=== PATIENT | male | born 1995 | race Caucasian/White ===

== ENCOUNTER 2020-05-23 15:02 | Outpatient (CLI) | payer BC, SELFPAY ==
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
== END 2020-05-23 15:03 | disposition home or self-care (01) ==
PROVIDERS: PCP Family Medicine; Visit Provider Physician Assistant
DX: M25.531 Pain in right wrist (principal); M25.532 Pain in left wrist; S62.025A Nondisplaced fracture of middle third of navicular [scaphoid] bone of left wrist, initial encounter for closed fracture
CPT/HCPCS: 73110

== ENCOUNTER → 2021-12-16 02:10 | Outpatient (CLI) | payer BC, SELFPAY ==
[2021-12-16 17:21] LABS: SARS-CoV-2 RNA PCR Positive
== END ==
PROVIDERS: PCP Family Medicine; Visit Provider Nurse Practitioner Family
DX: U07.1 COVID-19 (principal); R05.9 Cough, unspecified
CPT/HCPCS: C9803; U0003; U0005

== ENCOUNTER → 2022-01-14 16:13 | Outpatient (CLI) | payer BC, SELFPAY ==
--- NOTE | ~2022-01-14 | XR_ITS ---
EXAMINATION: XR wrist LT w scaphoid DATE: 01/14/2022 16:29 INDICATION: Left wrist pain TECHNIQUE: Posteroanterior, ulnar deviation, scaphoid, oblique, and lateral views of the left wrist w ere obtained. COMPARISON: none FINDINGS: Interval internal fixation of the prior scaphoid waist fracture with a cannulated compression screw. The fracture has healed in essentially anatomic alignment. No other fractures identified. Slight nonu niform joint space narrowing at the triscaphe joint consistent with mild osteoarthritis. Remaining elpidio int spaces are normal. Soft tissues are unremarkable. IMPRESSION: 1. Near-anatomic alignment of a now healed internally fixed scaphoid waist fracture. 2. 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 Reviewed, dictated and finalized at location A. LINE OPERATOR IMPRESSION: 1. Near-anatomic alignment of a now healed internally fixed scaphoid waist frac ture. 2. 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
== END ==
PROVIDERS: PCP Family Medicine; Visit Provider Family Medicine
DX: M25.532 Pain in left wrist (principal); M19.032 Primary osteoarthritis, left wrist; Z87.81 Personal history of (healed) traumatic fracture
CPT/HCPCS: 73110

== ENCOUNTER 2022-03-17 21:19 | Emergency (ER) | payer BC, SELFPAY ==
--- NOTE | ~2022-03-17 | XR_ITS ---
EXAM: XR hand LT 2V HISTORY: laceration r/o retained fb COMPARISON: 01/14/2022 FINDINGS: Normal mineralization. No fracture or dislocation. No lytic or blastic lesion. Joint space s maintained. No erosion or periosteal change. Soft tissues within normal limits. Bandage material ov erlies the palm. Hardware fixation of the scaphoid, uncomplicated. IMPRESSION: No unexpected radiopaque foreign body. Reviewed, dictated and finalized at location K.
[2022-03-17 21:29] VITALS: BP 149/79; PULSE 85; RESP 16; TEMP 36.7; O2SAT 97
--- NOTE | 2022-03-17 21:59 | ED.WOUNDLAC ---
HPI - Wound/Laceration General Chief Complaint: Wound/Laceration Stated Complaint: left hand laceration Time Seen by Provider: 03/17/22 21:39 Source: patient History of Present Illness HPI narrative: Patient presents with a laceration to his left hand. Patient reports he was using a box lidder to open boxes when it slipped and struck himself in the left hand he noted pulsatile bleeding so came to ER for evaluation. Reports pain to the area achy, constant, worse with moving his hands, no radiation. Denies any focal numbness or weakness. Denies any lightheadedness or dizziness Related Data Allergies Allergy/AdvReac Type Severity Reaction Status Date / Time No Known Allergies Allergy Verified 03/17/22 21:32 Review of Systems Review of Systems: CONSTITUTIONAL: Denies fever, chills, or sweats. EYES: Denies visual changes, redness, or discharge. ENT: Denies rhinorrhea, congestion, sore throat, or otalgia. CARDIOVASCULAR: Denies chest pain, palpitations, or edema. RESPIRATORY: Denies cough or dyspnea. GASTROINTESTINAL: Denies abdominal pain, nausea, vomiting, or diarrhea. GENITOURINARY: Denies dysuria or hematuria. SKIN: Denies rash or itching. MUSCULOSKELETAL: Denies back pain, joint pain, or myalgia. NEUROLOGIC: Denies headache, numbness, dizziness, or weakness. PSYCHIATRIC: Denies anxiety or depression. All systems reviewed & are unremarkable except as noted in HPI and below PMFSH Past Medical History Medical History Bilateral wrist pain Status post fall Social History Social History Smoking status: Never smoker Alcohol intake: current Substance use: never Substance use type: does not use Gender identity (if verbalized by the patient): Male Sexual Orientation (if Verbalized by the Patient): Straight or Heterosexual Exam Narrative: GENERAL: Well-appearing, well-nourished, and in no acute distress. HEAD: Normocephalic, atraumatic. EYES: PERRLA and EOMI. ENT: Nares clear, no rhinorrhea or epistaxis. Mucous membranes moist. NECK: Supple. No masses. No JVD EXTREMITIES: Normal range of motion. 3 cm laceration with active bleeding on the thenar eminence of the left hand there is pulsatile bleeding. Range of motion of the left thumb remains intact sensation intact light touch cap refill less than 2 seconds SKIN: Warm, dry, no rash. NEURO: No focal deficits. Alert and oriented x3. PSYCH: Normal mood and affect. Course Reevaluation(s) Reevaluation #1: Patient is comfortable outpatient plan. Wound care instructions given. Date: 03/17/22 Time: 22:59 Vital Signs Vital signs: Vital Signs Temperature 36.7 C 03/17/22 21:29 Pulse Rate 85 03/17/22 21:29 Respiratory Rate 16 03/17/22 21:29 Blood Pressure 149/79 H 03/17/22 21:29 Pulse Oximetry 97 03/17/22 21:29 Temperature 36.7 C 03/17/22 21:29 Pulse Rate 85 03/17/22 21:29 Respiratory Rate 16 03/17/22 21:29 Blood Pressure 149/79 H 03/17/22 21:29 Pulse Oximetry 97 03/17/22 21:29 Procedures Laceration Laceration 1: Date: 03/17/22 Time: 22:49 Site: upper extremity Side (If applicable): left Size (cm): 3 Description: linear Depth: simple, single layer Local Anesthetic: lidocaine 1% and with epi Amount of anesthesia used (mL): 7 Pre-repair: wound explored and irrigated ====== Skin Level ====== Skin layer closed with: nylon Size (cm): 3-0 Number of sutures: 7 Technique: simple, interrupted and other (1 [id number] used at the most distal aspect of the wound where there was arterial bleeding appreciated no active bleeding after [id number] was placed. Another 6 sutures placed for simple interrupted's.) ====== Subcutaneous Layer ====== ====== Muscle Layer ====== ====== Tendon Layer ====== [facility]
[2022-03-17] MEDS: TETANUS,DIPHTHERIA,AC PERTUSSIS ADULT (0.5 ML) BOOSTRIX IM (22:58)
== END 2022-03-17 23:15 | disposition home or self-care (01) ==
LOC: ANHED 23:26
PROVIDERS: Emergency Provider Emergency Medicine; PCP Family Medicine
DX: S61.412A Laceration without foreign body of left hand, initial encounter (principal); Z23 Encounter for immunization; W27.0XXA Contact with workbench tool, initial encounter
CPT/HCPCS: 12002; 73120; 90471; 90715; 99283

== ENCOUNTER 2023-06-22 14:34 | Outpatient (CLI) | payer BC, SELFPAY ==
[2023-06-22 15:45] LABS: Strep Group A RT-PCR NOT DETECTED (Negative)
[2023-06-22 15:55] LABS: SARS-CoV-2 RNA PCR Negative (Negative)
== END 2023-06-22 14:35 | disposition home or self-care (01) ==
LOC: ANHLAB 14:37
PROVIDERS: PCP Family Medicine; Visit Provider Physician Assistant
DX: J02.9 Acute pharyngitis, unspecified (principal); Z20.822 Contact with and (suspected) exposure to COVID-19
CPT/HCPCS: 87635; 87651

== ENCOUNTER 2024-04-12 13:28 | Emergency (ER) | payer BC, SELFPAY ==
--- NOTE | ~2024-04-12 | XR_ITS ---
EXAMINATION: XR thoracic spine 3V DATE: 04/12/2024 14:07 INDICATION: Back pain. TECHNIQUE: 3 views of thoracic spine on 4 radiographs were obtained. COMPARISON: None. FINDINGS: There is 11 degrees levoscoliosis of upper thoracic spine. Vertebral body heights and inter vertebral disc heights are normal. IMPRESSION: 1. Upper thoracic levoscoliosis. Reviewed, dictated and finalized at location A.
--- NOTE | 2024-04-12 13:36 | ED.BACK ---
HPI - Back Pain/Injury General Chief Complaint: Back Pain/Injury Stated Complaint: Back pain Time Seen by Provider: 04/12/24 13:35 Source: patient Mode of arrival: ambulatory Limitations: no limitations History of Present Illness HPI Narrative: Patient is a 29-year-old male who presents with thoracic back pain under both shoulder blades. Patient states he got out of the shower today and bent down feeling sharp shooting pain. Patient reports pain is present with any twisting, bending or taking deep breaths. Patient has taken ibuprofen with no relief. Denies any numbness, tingling or weakness to extremities. Denies any loss of bowel or bladder. Related Data Allergies Allergy/AdvReac Type Severity Reaction Status Date / Time No Known Allergies Allergy Verified 04/12/24 13:40 Review of Systems Review of Systems: All systems reviewed & are unremarkable except as noted in HPI and below Constitutional: Constitutional: Denies body ache(s), Denies chills, Denies fatigue, Denies fever(s), Denies headache(s), Denies malaise and Denies weakness Eyes: Eyes: Denies blurry vision, Denies irritation and Denies loss of vision ENT: Denies otalgia, Denies headache(s), Denies nasal discharge, Denies sinus pain and Denies sore throat Cardiovascular: Cardiovascular: Denies chest pain, Denies irregular heart rhythm and Denies dyspnea Respiratory: Respiratory: Denies dyspnea Gastrointestinal: Gastrointestinal: Denies abdominal pain, Denies melena, Denies hematochezia, Denies diarrhea, Denies nausea and Denies vomiting Musculoskeletal: Musculoskeletal: Reports back pain, Denies myalgias and Denies arthralgias Integumentary/Breasts: Skin/Breast: Denies pruritus and Denies rash Neurologic: Denies headache(s), Denies loss of vision and Denies weakness Psychiatric: Psychiatric: Reports no additional psychiatric complaints Endocrine: Endocrine: Denies fatigue PMFSH Past Medical History Medical History Bilateral wrist pain Status post fall Social History Social History Smoking status: Never smoker Alcohol intake: current Substance use: never Substance use type: does not use Living arrangements: with family Occupation/Education: occupation Gender identity (if verbalized by the patient): Male Sexual Orientation (if Verbalized by the Patient): Straight or Heterosexual Comments At time of signature, agree with nursing past medical, surgical, social and family history. There is no relevant family history pertinent to the presenting complaint. Exam Const: General: cooperative, healthy appearing, comfortable, no acute distress and well nourished Nutritional Appearance: well nourished Orientation/consciousness: patient oriented x3 Limitations: no limitations HENMT: Head: normal to inspection, normocephalic and atraumatic Ears: hearing grossly normal bilaterally and external ears normal Face/Nose/Sinus: Normal external nose present, normal facial exam and face symmetric Face and sinus: normal facial exam and face symmetric Mouth: Yes lip normal Eyes: General: appearance normal, both eyes and all related structures Alignment and Position: alignment normal and position normal Periorbital: periorbital findings normal Eyelids: eyelids normal Pupils: Equal, round and reactive pupils present EOM: EOMs intact bilaterally Neck: Neck: normal visual inspection, full ROM and supple Chest: Chest palpation & inspection: normal inspection of the chest Resp: Effort & Inspection: normal respiratory effort and able to speak in complete sentences Auscultation: clear to auscultation bilaterally Cardio: Rate: regular rate Rhythm: regular rhythm Heart sounds: S1 normal heart sound present and S2 normal heart sound present GI: Inspection: normal to inspection Back/Spine/Pelvis: Thoracic/Lumbar Spine: thoracic and lumbar sp
[2024-04-12 13:48] VITALS: BP 149/90; PULSE 72; RESP 18; TEMP 36.9; O2SAT 100
== END 2024-04-12 14:25 | disposition home or self-care (01) ==
PROVIDERS: Emergency Provider Nurse Practitioner Family; PCP Family Medicine
DX: S29.012A Strain of muscle and tendon of back wall of thorax, initial encounter (principal); X58.XXXA Exposure to other specified factors, initial encounter
CPT/HCPCS: 72072; 99213; G0463

== ENCOUNTER 2025-08-20 11:59 | Emergency (ER) | payer BC, SELFPAY ==
[2025-08-20 12:09] VITALS: BP 128/80; PULSE 78; RESP 16; TEMP 36.8; O2SAT 99
--- NOTE | 2025-08-20 12:20 | ED.URI ---
HPI - URI/Sore Throat General Chief Complaint: Upper Respiratory Infection Stated Complaint: Sore Throat/Body aches/Cough Time Seen by Provider: 08/20/25 12:15 Source: patient and RN notes reviewed Mode of arrival: ambulatory Limitations: no limitations History of Present Illness HPI Narrative: 30-year-old male presents Express Care complaining of cough, congestion, nasal drainage, body aches, chills for approximately 9 days. Patient said he recently just returned from [place] from a honeymoon report he develops symptoms shortly after he returned. Patient denies any fevers, nausea vomiting, runny nose, earache, sore throat, chest pain, shortness of breath, difficulty breathing, diarrhea, or any other symptoms. Patient has been taking [id number] cold/flu medication some relief. Patient said today he woke up with worsening symptoms. Patient denies any significant past medical problems. Related Data Allergies Allergy/AdvReac Type Severity Reaction Status Date / Time No Known Allergies Allergy Verified 08/20/25 12:09 Review of Systems Review of Systems: CONSTITUTIONAL: Denies fever, chills, body aches, or sweats. EYES: Denies visual changes, redness, or discharge. ENT: Positive for congestion. Negative for rhinorrhea, sore throat, or otalgia. CARDIOVASCULAR: Denies chest pain, palpitations, or edema. RESPIRATORY: Positive for cough. Negative for dyspnea or wheezing. GASTROINTESTINAL: Denies abdominal pain, nausea, vomiting, or diarrhea. GENITOURINARY: Denies dysuria or hematuria. SKIN: Denies rash or itching. MUSCULOSKELETAL: Denies back pain, joint pain, or myalgia. NEUROLOGIC: Denies headache, numbness, or weakness. PSYCHIATRIC: Denies anxiety or depression. All other systems reviewed are negative, except as documented in HPI. [facility] Past Medical History Medical History Status post fall Bilateral wrist pain Social History Social History Smoking status: Never smoker Alcohol intake: current Substance use: never Substance use type: does not use Living arrangements: with family Occupation/Education: occupation Gender identity (if verbalized by the patient): Male Sexual Orientation (if Verbalized by the Patient): Straight or Heterosexual Comments At the time of my signature, I reviewed and agree with the nursing past medical, surgical, social, and family history. There is no relevant family history pertinent to the patient complaint. Exam Narrative: GENERAL: This is a well-nourished, well-developed adult, in no apparent distress. They are non ill-appearing, nontoxic appearing. HEAD: normocephalic, atraumatic. EYES: Sclera clear/white. Vision is grossly intact. Conjunctiva normal bilaterally. Extraocular movements intact. EARS: External ears normal, auditory canals clear and without drainage, TMs without erythema or perforation. Hearing grossly intact. NOSE: External nose normal with no obvious nasal discharge, nasal turbinates erythematous, no rhinorrhea. THROAT: Mucous membranes moist, posterior pharynx erythematous without exudate. Uvula is midline. Postnasal drip present. NECK: Neck supple, non-tender without lymphadenopathy, masses or thyromegaly. CARDIOVASCULAR: Regular rate and rhythm without murmurs, gallops, or rubs. RESPIRATORY: Clear to auscultation. Breath sounds equal bilaterally. No wheezes, rales, or rhonchi. SKIN: warm, Dry, intact with no suspicious lesions or rash, good texture and turgor. NEURO: awake, alert, and oriented to person, place and time. There were no obvious focal neurologic abnormalities. EXTREMITIES: No joint tenderness, effusion, or edema noted. BACK: Nontender without deformity. Course Course Emergency Course: Portions of this record may have been created with voice recognition software Level of Care: Express Care Visit Vital Signs Vital signs: Vital Signs Temperature 98.2 F 08/20/25 12:09 Pulse Rate 78 08/20/25 12:09 Respiratory Rate 16 08/20/25 12:09 Blood Pressure 128/80 08/20/25 12:09 Pulse Oximetry 99 08/20/25 12:09 Temperature 98.2 F 08/20/25 12:09 Pulse Rate 78 08/20/25 12:09 Respiratory Rate 16 08/20/25 12:09 Blood Pressure 128/80 08/20/25 12:09 Pulse Oximetry 99 08/20/25 12:09 MDM - URI/Sore Throat MDM Narrative Medical decision making narrative: Given patient's length of symptoms he is likely developed a bacterial sinusitis. Will treat with Augmentin. Discussed physical exam findings. Advised supportive measures and signs/symptoms to go to the ER. Pt is appropriate for outpt treatment and f/u. Differential Diagnosis Differential diagnosis: Likely upper respiratory infection, sinusitis, viral infection and pharyngitis Discharge Plan Discharge Clinical Impression: Sinusitis Patient Disposition: Home Condition: Stable Instructions: Antibiotic Form, Sinusitis (ED) Additional Instructions: Take the antibiotics as directed and complete the course even if you start to feel better. You may use a Neti pot saline rinse 3 times a day with lukewarm distilled water You may take ibuprofen 600 mg to 800 mg every 6-8 hours. Do not exceed more than 800 mg of ibuprofen per dose. Do not exceed more than 3200 mg ibuprofen in a day. You may take up to 1000 mg Tylenol every 6-8 hours. Do not exceed 1000 mg per dose, do exceed more than 4000 mg of Tylenol in a day. Use a humidifier or vaporizer at night. Drink plenty of water. 8-10 glasses per day. Use flonase 2 times per day for 5 days then as needed Take mucinex 2 times per day and be sure to take with 8oz of water. Follow up with Primary provider in 3-5 days Please go to the ER if he develops any difficulty breathing, chest pains, nausea, vomiting, worsening symptoms, or any other concerns Patient Language: Romanian Prescriptions: New benzonatate 100 mg capsule 100 mg PO TID PRN (Reason: cough) Qty: 20 0RF amoxicillin-pot clavulanate 875-125 mg tablet 1 tablet PO Q12H 7 Days Qty: 14 0RF No Action lidocaine 5 % adhesive patch,medicated 1 patch topical DAILY Qty: 15 0RF Rx Instructions: leave on most painful area for up to 12 hrs albuterol sulfate 90 mcg/actuation HFA aerosol inhaler 2 inh inhalation Q4-6H PRN (Reason: shortness of breath or wheezing) Qty: 8.5 1RF fluticasone propionate 220 mcg/actuation HFA aerosol inhaler 1 puff inhalation Q12H Qty: 12 5RF imiquimod 5 % cream in packet 1 applic topical 3XW Qty: 12 0RF Follow-up/Referrals: Suresh Parrish MD [Primary Care Provider, Family Practice] Time of Disposition: 12:19
== END 2025-08-20 12:20 | disposition home or self-care (01) ==
PROVIDERS: PCP Family Medicine
DX: J32.9 Chronic sinusitis, unspecified (principal)
CPT/HCPCS: 99213; G0463